=== PATIENT | female | born 1995 | race Caucasian/White ===

== ENCOUNTER 2017-04-24 00:09 | Inpatient (IN) | payer OTHER ==
[~2017-04-24] VITALS: Ht 172.7 cm; Wt 89.0 kg
--- OUTSIDE RECORDS SUMMARY | ~2017-04-24 | XMS ---
Demographics + + + | Address | [address] | | | [address] | | | [place] [address] | + + + | Preferred Language | Unknown | + + + | Marital Status | Unknown | + + + | Anabaptism Affiliation | Unknown | + + + | Race | Unknown | + + + | Ethnic Group | Unknown | + + + Author + + + | Author | [facility] | + + + | Organization | [facility] | + + + | Address | [address] | | | [place] [address] | + + + | Phone | | + + + Care Team Providers + + + + | Care Control Electrician Name | Role | Phone | + + + + Unavailable | Unavailable | + + + + PROBLEMS +---------+ + + +--------+ + + | Type | Condition | ICD9-CM | [id number] | Onset | Condition | SNOMED | | | | Code | Code | Dates | Status | Code | +---------+ + + +--------+ + + | Problem | Encounter | Z34.90 | | | Active | [id number] | | | for | | | | | | | | supervisio | | | | | | | | n of | | | | | | | | normal | | | | | | | | | | | | | | +---------+ + + +--------+ + + ALLERGIES Unknown Allergies SOCIAL HISTORY No smoking Hx information available PLAN OF CARE VITAL SIGNS MEDICATIONS Unknown Medications RESULTS No Results PROCEDURES No Known procedures IMMUNIZATIONS No Known Immunizations"
[~2017-04-24 00:09] MED LIST: PRENATABS FA T1 EACH PO; PROMETHAZINE HC25 M1 PO; ZOFRAN ODT4 MG PO
--- NOTE | 2017-04-24 11:54 | PR ---
[facility] [address] [facility] [place] [address] Signed Progress Notes IP Datetime Report Generated by CPN: 04/24/2017 11:54 PROGRESS NOTES: [id number] Impression: Slow Progression of Labor Procedures: Intrauterine Pressure Catheter; Scalp Electrode Plan: Augmentation; Anticipate Vaginal Delivery VITAL SIGNS: [id number] Vital Signs: Reviewed; Within Normal Limits EXAM: [id number] Dilatation: 4.0 Effacement: 80 Station: 0 MEMBRANES: [id number] Membrane Status: Ruptured Amniotic Fluid Color: Clear Comments: Will start Pitocin Augmentation Fetus A: [id number] FHR Baseline: 125 Variability: Moderate 6-25bpm Accelerations: 15X15 Presentation: Vertex Fetus B: [id number] Signing Physician: Mp Talamantes MD CC: *Electronically Signed* 04/24/17 1154 MP TALAMANTES MD PATIENT NAME: GRECIA PARKER PROGRESS NOTE DATE OF : [birth year] PHYSICIAN: MP TALAMANTES MD RPT #: [id number] REPORT IS CONFIDENTIAL AND NOT TO BE RELEASED WITHOUT AUTHORIZATION
--- NOTE | 2017-04-25 12:07 | PR ---
[facility] [address] [facility] [place] [address] Signed PP Progress Notes Datetime Report Generated by CPN: 04/25/2017 12:07 SUBJECTIVE: [id number] Pain: Within normal limits Nausea/Vomiting: Denies Vital Signs: [id number] Vital Signs: Reviewed; Within Normal Limits Notable Details: PP Hgb/Hct = 12.5/36.7 EXAM: [id number] Abdomen/Uterus: Normal Lochia: Normal Extremities: Normal IMPRESSION/PLAN/PROCEDURES: [id number] Impression: Normal progression Plan: Discharge Procedures: None Progress Notes: Doing well, without complaint, wants to go home. Signing Physician: Mp Talamantes MD CC: *Electronically Signed* 04/25/17 1207 MP TALAMANTES MD PATIENT NAME: GRECIA PARKER PROGRESS NOTE DATE OF : [birth year] PHYSICIAN: MP TALAMANTES MD RPT #: [id number] REPORT IS CONFIDENTIAL AND NOT TO BE RELEASED WITHOUT AUTHORIZATION
== END 2017-04-25 16:25 | disposition home or self-care (01) | DRG 775 ==
LOC: FBCO → FBC 03:00 → FBCO 04-25 09:07 → FBC 04-25 16:25
PROVIDERS: ADMIT General Practice
PROC: 10E0XZZ Delivery of Products of Conception, External Approach (ICD-10-PCS; principal; 2017-04-24)
PROC: 3E0S3BZ Introduction of Anesthetic Agent into Epidural Space, Percutaneous Approach (ICD-10-PCS; 2017-04-24)
PROC: 00HU33Z Insertion of Infusion Device into Spinal Canal, Percutaneous Approach (ICD-10-PCS; 2017-04-24)
DX: O80 Encounter for full-term uncomplicated delivery (principal); Z3A.39 39 weeks gestation of pregnancy; Z37.0 Single live birth
CPT/HCPCS: 01960; 36415; 59025; 85027; 99212; J2405; J2550; J2590; J3010; J7120

== ENCOUNTER 2018-02-14 18:28 | Observation (INO) | payer OTHER ==
[~2018-02-14] VITALS: Ht 172.7 cm; Wt 85.0 kg
--- NOTE | ~2018-02-14 | OR ---
[facility] [address] [place], [place] [address] Draft DATE OF OPERATION: 02/15/2018 SURGEON: Trista Garcia MD PREOPERATIVE DIAGNOSES: 1. Obstructing right ureteral calculi x2. 2. Severe nausea and vomiting, secondary to obstructing right ureteral calculi. POSTOPERATIVE DIAGNOSES: 1. Obstructing right ureteral calculi x2. 2. Severe nausea and vomiting, secondary to obstructing right ureteral calculi. NAMES OF PROCEDURES: 1. Diagnostic cystoscopy with right retrograde pyelogram. 2. Right nephroureteroscopy with laser lithotripsy and basket extraction of stones. 3. Insertion of indwelling right ureteral stent. ANESTHESIA: General. ESTIMATED BLOOD LOSS: Minimal. COMPLICATIONS: None. SPECIMENS: Fragments of both right ureteral calculi sent to the lab for stone analysis. DRAINS: A 6 x 26 cm Contour double-J ureteral stent inserted into the right ureter. INDICATIONS FOR PROCEDURE: Ms. Parker is a very pleasant 22-year-old healthy female with no previous history of nephrolithiasis, who presented to the emergency department on the evening of February 14, 2018 with a 1-2 week history of severe right lower quadrant pain, along with progressively worsening nausea and vomiting. The patient began to experience pain approximately 2 weeks prior to her presentation, however, at that time, she attributed to either ovulation or a right ovarian cyst. As her symptoms got worse, she developed uncontrollable nausea and vomiting. She also had experienced subjective fevers or PATIENT NAME: GRECIA PARKER OPERATIVE REPORT DATE OF : [birth year] REPORT #: [id number] PHYSICIAN: TRISTA GARCIA MD PCP: ESTIVEN PIERRE REPORT IS CONFIDENTIAL AND NOT TO BE RELEASED WITHOUT AUTHORIZATION [facility] [address] [place], [place] [address] Draft chills intermittently in the past week or so. On presentation, her white blood cell count was 19.7, other lab parameters were normal. She underwent a CT scan, which revealed a 9 mm obstructing right ureterovesical junction calculus, along with an 8 mm right proximal ureteral calculus. The CT scan did confirm the presence of right hydroureteronephrosis. She was admitted for IV pain control and antiemetics, and has been n.p.o. since late last night. She now presents to undergo definitive management of her right ureteral calculi. FINDINGS: 1. On cystoscopy, there was no evidence of any suspicious masses, lesions, or stones within the bladder. There is some erythema and edema associated with the right ureteral orifice, however, the ureterovesical junction calculus is not visualized on cystoscopy. Right retrograde pyelogram was performed, which revealed wispy areas in the distal right ureter as well as a filling defect at the level of the UVJ, consistent with her large 9 mm stone. 2. A semi-rigid ureteroscopy was performed and did reveal a large impacted stone in her distal right ureter with severe ureteral mucosal edema. The stone was lasered using a 270 micron fiber with moderate difficulty due to the impaction of the stone into the ureteral wall. I was finally able to extract 100% of stone fragment from the distal right ureter. 3. I then performed a flexible right nephroureteroscopy and found the 8 mm stone in the right renal pelvis in the mid pole calyx. The stone was fragmented using a 270 micron fiber and 95% of the stone fragments were extracted successfully. 4. At the end the procedure, a 6 x 26 cm double-J ureteral stent was inserted into the ureter under direct visualization without difficulty. 5. This was a technically difficult procedure and did require approximately 1 hour and 45 minutes of surgery time including laser fragmentation, extraction of stones, and stent placement. DESCRIPTION OF PROCEDURE: After informed consent was obtained, the patient was taken back to the operating room. She was transferred from the [facility] to the operating room table where general anesthesia was induced. She was placed in dorsal lithotomy position and her genitalia prepped and draped in the standard sterile fashion. Using a 30-degree lens on a 22.5-[place]izen [place] introducer, a rigid cystoscope was inserted through the urethra into her bladder under direct visualization. Panendoscopic views of the bladder were then obtained. Please see the findings. Attention was turned to the right ureteral orifice. A cone-tipped catheter was advanced to the right ureteral orifice and a right retrograde pyelogram was performed. Please see the findings. I then attempted a passage of a 0.035 Sensor wire past the stone and into the right collecting system, however, this was unsuccessful. I advanced a semi-rigid ureteroscope through the urethra into the distal right ureter and a diagnostic semi-rigid ureteroscopy was performed. Please see above findings. The PATIENT NAME: GRECIA PARKER OPERATIVE REPORT DATE OF : [birth year] REPORT #: [id number] PHYSICIAN: TRISTA GARCIA MD PCP: ESTIVEN PIERRE REPORT IS CONFIDENTIAL AND NOT TO BE RELEASED WITHOUT AUTHORIZATION [address] [address] [place] impacted 9 mm stone was lasered with difficulty using a 270 micron fiber. I was finally able to break all the fragments up and excavate them from the wall of the distal right ureter. The stone fragments were placed in a specimen cup to be sent for pathology. Then, I was finally able to insert a Sensor wire into the right renal pelvis on fluoroscopic guidance. Over the wire, I passed a 13/15 ureteral access sheath into the right ureter under fluoroscopic guidance. I repeated a right retrograde pyelogram to confirm placement. I then passed a flexible ureteroscope through the sheath and into the right proximal ureter and kidney. The Sensor wire had pushed the stone back into the kidney and I was able to visualize the stone in the mid pole calyx of the right kidney. Thus, the 8 mm stone was fragmented using a 270 micron fiber without difficulty and 95% of the stone fragments were successfully extracted. Once I was satisfied that all the stone fragments were cleaned from the kidney, I withdrew the ureteroscope. Of note, the patient's distal stone was probably present for at least 2-3 weeks given the mild tortuosity and dilation of the right ureter that is indicative with more long-standing obstruction. This did add an element of difficulty to the procedure. Once all the stone burden was gone, I reinserted a Sensor wire through the ureteral access sheath and removed the sheath intact. Over the wire, I passed a 6 x 26 cm Contour double-J ureteral stent into the right under direct visualization. Fluoroscopy confirmed proximal coil within the kidney and cystoscopy confirmed the presence of a distal coil. The patient's bladder was then drained and the cystoscope was removed. The procedure was then terminated. The patient tolerated the procedure well without any complication. She will now be transferred to the postanesthesia care unit in stable condition. DISPOSITION: If the patient remains afebrile and her nausea and vomiting seize after surgery, she will be a candidate to be sent home later this evening with appropriate oral pain control and oral antibiotics. I discussed the details of today's procedure with the patient's mother and answered all of her questions. I told her that all of her stone burden was successfully extracted on the right side. However, due to the impaction of the distal right stone, she will need an indwelling right ureteral stent for 2 weeks. She will be scheduled to return to clinic in approximately 2 weeks to undergo cystoscopy with right ureteral stent extraction. In the interim, she will be sent home today with Percocet 5/325, dispensed #30 as needed for pain, along with Levaquin 500 mg p.o. daily for a total of 7 days. We will discuss the results of her stone analysis at the time of her next appointment. Trista Garcia MD PATIENT NAME: GRECIA PARKER OPERATIVE REPORT DATE OF : [birth year] REPORT #: [id number] PHYSICIAN: TRISTA GARCIA MD PCP: ESTIVEN PIERRE REPORT IS CONFIDENTIAL AND NOT TO BE RELEASED WITHOUT AUTHORIZATION [facility] [address] [place] [address] [place] [address] Draft SARA/ABELARDO /[id number] Copies: ~ PATIENT NAME: GRECIA PARKER OPERATIVE REPORT DATE OF : [birth year] REPORT #: [id number] PHYSICIAN: TRISTA GARCIA MD PCP: ESTIVEN PIERRE REPORT IS CONFIDENTIAL AND NOT TO BE RELEASED WITHOUT AUTHORIZATION
--- NOTE | 2018-02-14 23:08 | NUR ---
PATIENT ARRIVED TO THE FLOOR VIA STRETCHER AROUND 2215. PATIENTS INTIAL ASSESMENT COMPLETED AND RECORDED. PATIENTS INTAKE COMPLETED. PATIENT RATES PAIN AT AN 8/10. PATIENT IS COMFORTABLE AT 6/10. PATIENT GIVEN PRN PAIN MEDICATION PER ORDER. PATIENT COMPLAINS OF NAUSEA. PATIENT GIVEN PRN NAUSEA MEDICATION PER ORDER. PATIENT OREINTED TO ROOM AND FLOOR. PATIENT EDUCATED ON THE USE OF THE CALL LIGHT. PATIENT VERBALIZES UNDERSTANDING. PATIENT DENIES ANY FURTHER NEEDS. PATIENTS FAMILY HAS LEFT FOR THE EVEIN[place]. CALL LIGHT IN REACH.
--- NOTE | 2018-02-14 23:15 | NUR ---
HELPED PT TO THE RESTROOM, SHE VOIDED 200MLS OF PINK URINE. PT ALSO HAD A VERY SMALL AMOUNT OF EMESIS. PT STATES HER PAIN IS DECREASING AND IS NOW 7/10. SHE DENIES FURTHER NEEDS. CALL LIGHT IS WITHIN REACH.
--- NOTE | 2018-02-15 00:24 | NUR ---
PT IS RESTING WITH EYES CLOSED, RESPIRATIONS ARE EVEN AND NONLABORED. CALL LIGHT IS WITHIN REACH.
--- NOTE | 2018-02-15 01:48 | NUR ---
PT IS RESTING WITH EYES CLOSED, RESPIRATIONS ARE EVEN AND NONLABORED. CALL LIGHT IS WITHIN REACH.
--- NOTE | 2018-02-15 02:19 | NUR ---
PT HAD 200MLS OF EMESIS OUT AND PAIN AT 7/10. GAVE DILAUDID 0.6MG AND COOL WASH CLOTHS. SHE REQUESTED TO SWISH AND SPIT SOME WATER. PT HAS NO FURTHER NEEDS AT THIS TIME.
--- NOTE | 2018-02-15 03:19 | NUR ---
HELPED PT TO SHOWER AND BACK TO BED. SHE HAS COOL WASHCLOTHES ON HER HEAD. SHE DENIES FURTHER NEEDS AT THIS TIME.
--- NOTE | 2018-02-15 04:21 | NUR ---
PT IS RESTING WITH EYES CLOSED, RESPIRATIONS ARE EVEN AND NONLABORED. CALL LIGHT IS WITHIN REACH.
--- NOTE | 2018-02-15 05:06 | NUR ---
PT'S PAIN WAS MADE TOLERABLE THROUGH THE NIGHT WITH IV DILAUDID, HOWEVER, NAUSEA CONTINUED DESPITE TAKING ZOFRAN. COOL WASHCLOTHES AND A SHOWER HELPED SOME. SHE IS NPO D/T URETEROSCOPY PLANNED FOR TODAY WITH DR. GARCIA. SHE HAS D51/2 NS WITH 20MEQ OF KCL AT 125. SHE IS AFEBRILE AND AMBULATES SBA.
--- NOTE | 2018-02-15 06:47 | NUR ---
PT REPORTS NAUSEA IS STILL THERE BUT NOT BAD HOWEVER SHE WANTED TO STAY AHEAD OF IT. ADMINISTERED ZOFRAN AND NEW BAG OF FLUIDS. PT WOULD LIKE TO SLEEP AND DENIES FURTHER NEEDS. CALL LIGHT IS WITHIN REACH.
--- NOTE | 2018-02-15 07:36 | NUR ---
REPORT RC'D FROM PRINCIPAL BIOSTATISTICIAN NURSE, REPORTS PAIN AND NAUSEA. CALL LIGHT ANSWERED, PT REQUESTING TO GET IN SHOWER TO ASSIST WITH NAUSEA. PT ASSISTED TO SHOWER AT THIS TIME, ADVISED TO USE CALL LIGHT ONCE COMPLETE, VERBALIZED UNDERSTANDING.
--- NOTE | 2018-02-15 08:00 | NUR ---
DR. GARCIA AT BEDSIDE TO ASSESS PT, UPDATE PLAN OF CARE, AND OBTAIN CONSENT FORM. PROCEDURE DISCUSSED, ALL QUESTIONS ANSWERED, CONSENT SIGNED AND PLACED IN CHART. ONE TIME DOSE OF 25MG DC PHENERGREN TO BE GIVEN FOR ONGOING NAUSEA.
--- NOTE | 2018-02-15 08:40 | NUR ---
PT A&O X3 AND RESPONDING APPROPRIATELY. PAIN IN RLQ AND RIGHT FLANK 7/10. NAUSEA AND EMSIS CONTINUES, ONE TIME DOSE PHENERGRRN GIVEN, PT TOELRATED WELL. ABD TENDERNESS NOTED, BOWEL TONES ACTIVE X 4, VOIDING PINK/YELLOW URINE. AFEBRILE.
--- NOTE | 2018-02-15 09:15 | NUR ---
PRO-OP WIPE DOWN COMPLETED AND NEW GOWN APPLIED. PT GIVEN 0.5MG DILAUDID GIVEN FOR 7/10 RIGHT FLANK PAIN. NAUSEA CONTINUES. ADVISED PT OF PLAN, ALL QUESTIONS ANSWERED, DENIES OTHER NEEDS, CALL LIGHT WITHIN REACH.
--- NOTE | 2018-02-15 09:43 | NUR ---
PATIENT RESTING IN BED, CALL LIGHT IN REACH. FAMILY IN ROOM, NO OTHER NEEDS AT THIS TIME.
--- NOTE | 2018-02-15 09:45 | NUR ---
PT OFF UNIT AT THIS TIME AND DOWN TO DAY SURGERY
--- NOTE | 2018-02-15 12:57 | HP ---
[facility] [address] [place], [place] [address] Signed ADMISSION DATE: 02/14/2018 CHIEF COMPLAINT: Severe right-sided flank pain x1 week, with associated nausea and vomiting. HISTORY PRESENTING ILLNESS: Ms. Parker is a very pleasant 22-year-old healthy female with no previous history of nephrolithiasis, who presented to the emergency department last evening with a 1-week history of a progressively worsening right lower quadrant discomfort. She initially attributed the discomfort to an ovarian cyst, for which she has a history of intermittent ovarian cyst rupture. She presented last night with progressively worsening right lower quadrant and flank discomfort, along with nausea and vomiting. She also reports intermittent bouts of fevers as well as gross hematuria for the past [address] of the abdomen and pelvis was performed, which revealed a 9 mm right ureterovesical junction calculus, along with an 8 mm right proximal ureteral calculus. There is some mild [id number] hydronephrosis associated with these obstructing stones. Urinalysis was obtained which did reveal blood, however, no evidence of infection. She was found to have an elevated white blood cell count of 19.7 on presentation. The emergency department contacted me to admit the patient in preparation for definitive management of her obstructing right ureteral calculi. REVIEW OF SYSTEMS: Positive for nausea and vomiting. Gross hematuria, right groin and right flank pain. Review of systems is negative for chest pain, diarrhea, or shortness of air. PAST MEDICAL HISTORY: Significant for cervical dysplasia and ovarian cysts. The patient has no previous history of nephrolithiasis. PAST SURGICAL HISTORY: Significant for tonsillectomy and adenoidectomy. MEDICATIONS: The patient denies any current medications at this time. ALLERGIES: No known drug allergies. 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 She does smoke marijuana, but denies any other drug or alcohol use. She also Electronically Signed By: TRISTA GARCIA MD 02/15/18 1257 PATIENT NAME: GRECIA PARKER HISTORY AND PHYSICAL DATE OF : [birth year] REPORT #: [id number] PHYSICIAN: TRISTA GARCIA MD PCP: ESTIVEN PIERRE REPORT IS CONFIDENTIAL AND NOT TO BE RELEASED WITHOUT AUTHORIZATION [address] [address] Signed does not use tobacco. FAMILY HISTORY: The patient's mother has a history of nephrolithiasis. PHYSICAL EXAMINATION: VITAL SIGNS: She is currently afebrile. Pulse is in the 80s to 90s, blood pressure ranging from the 100s to 130s/70s to 80s, respirations are 16 to 18, and she is saturating 98% on room air. GENERAL: She is alert and oriented, however, she is actively moaning and vomiting during the consultation. CARDIOVASCULAR: Reveals a regular rate and rhythm. LUNGS: Clear. ABDOMEN: Soft, but tender to palpation in the right lower quadrant. EXTREMITIES: She is moving all extremities equally. IMAGING: As stated above, a noncontrast CAT scan performed last night on 02/14/2018, reveals 2 obstructing right ureteral calculi, a 9 mm stone located at the right ureterovesical junction and a proximal right 8 mm ureteral calculus. Associated hydronephrosis is noted. LABORATORY DATA: The patient's white blood cell count on admission was 19.7. Her H and H were within normal limits along with her creatinine. Urinalysis currently reveals no evidence of active infection. ASSESSMENT: 1. Two obstructing right ureteral calculi, with associated hydronephrosis. 2. Active emesis and inability to tolerate p.o. intake. PLAN: The patient has been n.p.o. since last night and she is currently actively vomiting. The patient's mother is at her bedside and is an answering most of her HPI questions and medical history questions on her behalf. The patient was given IV Rocephin last night and will be given preoperative antibiotics today. She will be heading to the OR later this morning to undergo cystoscopy with right retrograde pyelogram as well as possible right ureteroscopy with laser lithotripsy and basket extraction of stones, along with right ureteral stent insertion. The risks and benefits of the procedure including damage to the ureter, bleeding and infection were discussed with the patient and her mother, and they have agreed to proceed. I discussed with the patient today that I will attempt to extract the stones, however, if I see evidence of significant infection, I Electronically Signed By: TRISTA GARCIA MD 02/15/18 1257 PATIENT NAME: GRECIA PARKER HISTORY AND PHYSICAL DATE OF : [birth year] REPORT #: [id number] PHYSICIAN: TRISTA GARCIA MD PCP: ESTIVEN PIERRE REPORT IS CONFIDENTIAL AND NOT TO BE RELEASED WITHOUT AUTHORIZATION [address] [address] Signed will abort that portion of the procedure and just perform cystoscopy with right ureteral stent insertion today. The patient and her mother verbalized understanding of my clinical plan of care. In the interim, she will be given Phenergan per rectum to help with her severe nausea and vomiting. MD SARA Dial/MODL /[id number] Copies: ~ Electronically Signed By: TRISTA GARCIA MD 02/15/18 1257 PATIENT NAME: GRECIA PARKER HISTORY AND PHYSICAL DATE OF : [birth year] REPORT #: [id number] PHYSICIAN: TRISTA GARCIA MD PCP: ESTIVEN PIERRE REPORT IS CONFIDENTIAL AND NOT TO BE RELEASED WITHOUT AUTHORIZATION
--- NOTE | 2018-02-15 13:06 | NUR ---
02/15/18 1306 Elisa Myers 1259 PT ARRIVED TO PACU NONAROUSABLE WITH MANAGER UTILITIES DOING CHIN THRUST TO MAINTAIN AIRWAY. 1300 PT SITTING IN HIGH FOLWERS AND HEAD LIFT DONE WITH PILLOWS, LARGE AMOUNT OF SNORING NOTED BUT MAINTAINING AIRWAY. PT REMAINS NONAROUSABLE. O2 SAT 100% O2 DECREASED TO 6L VIA MASK.
--- NOTE | 2018-02-15 14:51 | NUR ---
PT HAS COMPLETED SURGERY, AND IS NOW IN PACU. FAMILY WAITING IN RM 123. MOTHER STATED THAT SHE WAS UP TO SPEED, AND APPRECIATED THE INFO THAT HAS COME HER WAY. WILL FOLLOW NEEDED
--- NOTE | 2018-02-15 15:12 | NUR ---
PATIENT BACK TO FLOOR. THIS MOTOR COACH TOUR OPERATOR ASSISTED MULTIPLE RNS WITH BLADDER SCANNING PATIENT AND TAKING VITALS. PATIENT VERY PAINFUL AND NEEDING TO URINATE AT THIS TIME. MULTIPLE RN'S IN ROOM AT THIS TIME.
--- NOTE | 2018-02-15 15:30 | NUR ---
PT ARRIVED TO FLOOR FROM PACU. PT VERY PAINFUL, C/O PAIN IN LOWER ABD AND URETHRA. BLADDER SCANNED FOR 997ML, PT UP AND VOIDED 1 MISSED VOID OF PINK URINE. BLADDER SCANNED FOR 922ML. RECIEVED ORDER TO PLACE 16FR MORGAN. PLACED AT THIS TIME, PT LUIS WELL. GOT IMMEDIATE RETURN OF 1150ML OF LIGHT RED URINE. PT REPORTS RELIEF OF PRESSURE BUT STILL SOME "DISCOMFORT" OF LOWER ABD AND URETHRA. MEDICATED WITH PRN TORADOL. PT DENIES NAUSEA. DROWSY, FALLS ASLEEP EASILY. IVF STARTED PER ORDERS. PT SATTING 94% ON RA. MOTHER AND FRIEND AT BEDSIDE. CALL LIGHT WITHIN REACH.
--- NOTE | 2018-02-15 16:11 | NUR ---
PT RESTING SOUNDLY IN BED WITH EYES CLOSED, RESP EVEN AND UNLABORED. SATTING 96% ON RA.
--- NOTE | 2018-02-15 18:26 | NUR ---
PT RATING PAIN 3/10 AT THIS TIME. MORGAN PATENT, PUTTING OUT PINK URINE. PT DRINKING WATER, LUIS WELL. DOES NOT WANT TO EAT AT THIS TIME. PT AFEBRILE. SIGNIFICANT OTHER AT BEDSIDE. CALL LIGHT WITHIN REACH.
--- NOTE | 2018-02-15 18:31 | NUR ---
PATIENT RESTING IN BED, CALL LIGHT IN REACH, FAMILY IN ROOM, NO OTHER NEEDS AT THIS TIME. RN STATES SHE TOOK VITAL SIGNS.
[2018-02-15] MEDS ORDERED: LEVAQUIN500 MG PO (18:33)
[2018-02-15] MEDS ORDERED: PYRIDIUM200 MG PO (18:34)
[2018-02-15] MEDS ORDERED: PERCOCET 5-3251 EACH PO (18:34)
[2018-02-15] MEDS ORDERED: PROMETHAZINE HC25 M1 PO (18:36)
== END 2018-02-15 19:00 | disposition home or self-care (01) ==
LOC: ED 18:28 → MS 21:51
PROVIDERS: ADMIT Urology
PROC: 0TF68ZZ Fragmentation in Right Ureter, Via Natural or Artificial Opening Endoscopic (ICD-10-PCS; principal; 2018-02-15 10:30)
PROC: 0T768DZ Dilation of Right Ureter with Intraluminal Device, Via Natural or Artificial Opening Endoscopic (ICD-10-PCS; 2018-02-15 10:30)
DX: N13.2 Hydronephrosis with renal and ureteral calculous obstruction (principal); R11.2 Nausea with vomiting, unspecified
CPT/HCPCS: 00910; 51701; 74177; 74420; 80053; 81001; 82365; 83690; 84703; 85025; 96361; 96374; 96375; 96376; 99285; C2617; G0378; J0131; J0330; J0461; J0696; J1100; J1170; J1200; J1885; J2250; J2405; J2543; J2704; J2765; J3010; J7030; J7120; Q9967

== ENCOUNTER 2019-06-02 05:40 | Emergency (ER) | payer OTHER ==
[~2019-06-02] VITALS: Ht 172.7 cm; Wt 77.1 kg
[~2019-06-02 05:40] MED LIST changes: +IBU800 MG PO; +LEVAQUIN500 MG PO; +PERCOCET 5-3251 EACH PO; +PYRIDIUM200 MG PO
[2019-06-02] MEDS ORDERED: ONDANSETRON ODT8 MG PO (13:03)
[2019-06-02] MEDS ORDERED: REGLAN10 MG PO (13:03)
== END 2019-06-02 13:15 | disposition home or self-care (01) ==
LOC: ED 05:40
DX: K52.9 Noninfective gastroenteritis and colitis, unspecified (principal); Z87.891 Personal history of nicotine dependence
CPT/HCPCS: 74177; 80053; 84703; 85025; 96361; 99284-25; J1200; J1790; J2270; J2405; J2550; J7030